=== PATIENT | female | born 1975 | race Caucasian/White ===

== ENCOUNTER → 2017-02-08 | Outpatient (CLI) | payer BC ==
[~2017-02-08] MED LIST: ALBUTEROL17 GM INH; BACTRIM DS TABL1 TAB PO; DEPAKOTE ER PO; DIFLUCAN PO; ENSURE LIQUID237 M2; FLEXERIL PO; GEODAN PO; IBUPROFEN PO; LITHIUM PO; MEDROL PO; PAXIL PO; PERCOCET5/325 PO; PHENERGAN25 MG PO; PROTONIX PO; ROZEREM8 MG PO; ZOLOFT PO
--- NOTE | ~2017-02-08 | CR63 ---
[facility] A Service of [facility] & [facility] RADIOLOGY TEXT RESULTS PATIENT: ANNMARIE MAYER LOCATION: [facility] : 73 UNIT #: [id number] AGE: [address]: Radames Villa MD SEX: F ORDER DR: [id number] [facility] [address] [place], [place] [address] [id number] O MR#: [id number] Acc #: [id number] NAME: ANNMARIE MAYER : 1975 SEX: F STUDY DATE/TIME: 02/08/2017 9:23 UNIT: [facility] ROOM: STUDY DESCRIPTION: CR Chest 2 View Attending Physician: Radames Villa M.D. Referring Physician: Radames Villa M.D. Ordering Physician: Radames Villa M.D. Primary Care Physician: Tariq Pugh M.D. MEDICAL IMAGING REPORT This report is preliminary unless electronic signature is present EXAM Chest 02/08/2017 HISTORY 41-year-old woman preop clearance left hip replacement. Short of air. Patient is smoker. COMPARISON 08/07/2012. FINDINGS Two-view chest demonstrates normal cardiac size and configuration. Hilar structures and mediastinal contours are preserved. Bilateral lungs are hyperinflated but clear. Costophrenic angles and bony thorax appears normal. IMPRESSION Pulmonary hyperinflation only. Stable chest with no acute finding. Dictated by... Mk Mayberyr M.D. THIS IS AN ELECTRONICALLY VERIFIED REPORT Mk Mayberry M.D. at 02/08/2017 3:28 PM IDANIA/haydee TD: 02/08/2017 13:58 JOB #: [id number] MEDICAL IMAGING REPORT Page 1 of 1 COPY
--- NOTE | ~2017-02-08 | EKG ---
PATIENT: ANNMARIE MAYER UNIT #: [id number] Ventricular Rate: 58 BPM Atrial Rate: 58 BPM P-R Interval: 132 ms QRS Duration: 104 ms Q-T Interval: 430 ms QTC Calculation(Bezet): 422 ms P Butler: 0 degrees Calculated R Butler: 15 degrees Calculated T Butler: 26 degrees Diagnosis Line: Sinus bradycardia Diagnosis Line: Otherwise normal ECG Diagnosis Line: When compared with ECG of 06-APR-2014 07:55, Diagnosis Line: No significant change was found Diagnosis Line: Confirmed by YEISON GRANGER MD ([id number]) on 02/08/2017 Diagnosis Line: 8:39:24 PM INTERPRETING MD: BÁRBARA GOTTLIEB
[2017-02-08 09:22] LABS: HEMATOCRIT 40.1 % (35.0-45.0); HEMOGLOBIN 12.9 gm/dL (12.0-16.0); MEAN CELL VOLUME 88.4 FL (83-96); MEAN CORPUSCULAR HEMOGLOBIN 28.6 PG (28-34); MEAN CORPUSCULAR HGB CONC 32.3 g/dL (30-36); RED BLOOD COUNT 4.53 X10e (3.90-5.30); RED CELL DISTRIBUTION WIDTH 15.3 % (11.0-15.5); WHITE BLOOD COUNT 6.4 X10e3 (4.0-10.5)
[2017-02-08 10:08] LABS: CALCIUM SERUM 9.1 mg/dL (8.4-10.2); CREATININE SERUM 0.6 mg/dL (0.6-1.4); GLOM FILT RATE Estimated 112.4 mL/min (>60)
== END | disposition home or self-care (01) ==
LOC: CLAB 08:46
PROVIDERS: Specialist
DX: Z01.818 Encounter for other preprocedural examination (principal); M16.12 Unilateral primary osteoarthritis, left hip; R91.8 Other nonspecific abnormal finding of lung field; R00.1 Bradycardia, unspecified
CPT/HCPCS: 36415; 71020; 80048; 85027; 87086; 93005

== ENCOUNTER 2017-03-22 19:07 | Emergency (ER) | payer BC ==
[~2017-03-22] VITALS: Ht 175.3 cm; Wt 97.1 kg
--- NOTE | ~2017-03-22 | CR150 ---
[facility] A Service [facility] RADIOLOGY TEXT RESULTS PATIENT: ANNMARIE MAYER LOCATION: [facility] : 73 UNIT #: [id number] AGE: [address]: Abida Merino MD SEX: F ORDER DR: [id number] [id number] [place], [place] [address] [id number] E MR#: [id number] Acc #: [id number] NAME: ANNMARIE MAYER : 1975 SEX: F STUDY DATE/TIME: 03/22/2017 20:03 UNIT: [facility] ROOM: STUDY DESCRIPTION: CR Hip Min 2 Views Lt Attending Physician: Abida Merino M.D. Ordering Physician: Abida Merino M.D. Primary Care Physician: Tariq Pugh M.D. MEDICAL IMAGING REPORT This report is preliminary unless electronic signature is present EXAM Left hip, 2 views, 03/22/2017 INDICATIONS 41-year-old female with left hip pain, popped out and then back into place today. TECHNIQUE Two views of the left hip compared with 10/05/2009. FINDINGS The patient is status post interval total left hip replacement. Surgical hardware appears to be in satisfactory position. No acute fracture. Postop changes right hemipelvis. IMPRESSION 1. Negative Dictated by... Hamlet Lockett M.D. THIS IS AN ELECTRONICALLY VERIFIED REPORT Hamlet Lockett M.D. at 03/23/2017 11:30 AM SATINDER/amari TD: 03/23/2017 03:38 JOB #: [id number] MEDICAL IMAGING REPORT [facility] A [facility] RADIOLOGY TEXT RESULTS PATIENT: ANNMARIE MAYER LOCATION: [facility] : 73 UNIT #: [id number] AGE: [address]: Abida Mernio MD SEX: F ORDER DR: Page 1 of 1 COPY
== END 2017-03-22 21:57 | disposition home or self-care (01) ==
LOC: CED 19:07
DX: M25.552 Pain in left hip (principal); F31.9 Bipolar disorder, unspecified; Z98.51 Tubal ligation status; Z79.899 Other long term (current) drug therapy; Z88.0 Allergy status to penicillin; Z88.2 Allergy status to sulfonamides
CPT/HCPCS: 73502; 96372; 99284; J2270